=== PATIENT | female | born 1990 | race Caucasian/White ===

== ENCOUNTER → 2024-06-01 | Outpatient (REF) | payer OTHER ==
[2024-06-05 12:32] LABS: HPV APTIMA Not Detected (Not Detected)
== END ==
LOC: M LAB REF 13:03
PROVIDERS: ATTEND Registered Nurse
DX: Z12.4 Encounter for screening for malignant neoplasm of cervix (principal); R87.610 Atypical squamous cells of undetermined significance on cytologic smear of cervix (ASC-US)